=== PATIENT | female | born 1950 | race Caucasian/White ===

== ENCOUNTER → 2023-12-29 14:02 | Outpatient (REF) | payer MEDICARE, OTHER, SELFPAY | LOC: WDC 14:02 | PROVIDERS: ATTENDING PHYSICIAN Family Medicine; REFERRING PHYSICIAN Family Medicine | DX: Z12.31 Encounter for screening mammogram for malignant neoplasm of breast (principal) | CPT/HCPCS: 77063; 77067 ==

== ENCOUNTER 2024-03-13 12:33 | Emergency (ER) | payer MEDICARE, OTHER, SELFPAY ==
[2024-03-13 12:33] VITALS: BMI 26.1
[2024-03-13 12:45] VITALS: BP 123/67
[2024-03-13 13:14] LABS: % Basophils 0.6 % (0-2); % Eosinophils 0.4 % (0-6); % Immature Granulocytes 0.4 % (0-0.5); % Lymphocytes 20.2 % (20.5-51.1); % Monocytes 9.7 % (1.7-9.3); % Neutrophils 68.7 % (42.2-75.2); Absolute Monocytes 0.5 10^3/uL (0.1-0.6); Absolute Neutrophils 3.5 10^3/uL (1.4-6.5); Hemoglobin 15.6 g/dL (12.0-16.0); Mean Corp Hgb Conc. 34.7 g/dL (33.0-37.0); Mean Corpuscular Hgb 30.6 pg (27.0-31.0); Mean Corpuscular Volume 88.2 fL (81.0-99.0); Mean Platelet Volume 9.6 fL (7.4-10.4); Nucleated Red Blood Cells % 0 %; Platelet Count 243 10^3/uL (130-400); Red Cell Dist. Width 11.9 % (11.5-14.5)
[2024-03-13 13:35] LABS: ALT (SGPT) 70 U/L (0-35); AST (SGOT) 57 U/L (14-36); Albumin 4.7 g/dl (3.5-5.0); Alkaline Phosphatase 94 U/L (38-126); Blood Urea Nitrogen 21 mg/dl (7-17); Calcium 9.9 mg/dl (8.4-10.2); Carbon Dioxide 25 mmol/L (22-30); Chloride 95 mmol/L (98-107); Glucose 100 mg/dl (70-99); Potassium 3.9 mmol/L (3.5-5.1); Sodium 137 mmol/L (135-145); Total Protein 7.6 g/dl (6.3-8.2); eGFR > 60.00
[2024-03-13 14:00] VITALS: BP 117/69
[2024-03-13 15:55] VITALS: BP 117/69
[2024-03-13 16:39] VITALS: BP 111/60
--- NOTE | 2024-03-13 16:45 | ED.GENMED ---
History of Present Illness
General
Chief Complaint: Dizziness
Time Seen by Provider: 03/13/24 15:44
History of Present Illness
History of Present Illness:
74-year-old female with history of asthma presenting to the emergency department for feeling dizzy/off-balance. Patient reports symptoms started on Monday which is 5 days ago. She also notes some generalized decreased p.o. intake. Denies
weakness or numbness to her extremities. Does note that sometimes she feels the symptoms with weather changes, however do not believe persist this long. Last evening she had some word finding issues, however they went away. She denies chest pain
or difficulty breathing. She denies abdominal pain. She denies any fall or trauma. Reports that she initially had some nausea and vomiting which has since went away. She also initially had some cough and congestion and subjective fevers, which
has also gone away. Denies known sick contacts. Denies additional acute medical complaints.
Past History
Past History
ED Past Medical History: Hypercholesterolemia (Borderline)
ED Past Surgical History: Gynecological
Social History
Tobacco: Non-smoker
Personal:
Living: with family
Employment: Employed
Family History
Family History: Negative Early CAD
Phy Exam
Physical Exam
Physical Exam:
General: Well-appearing, no clinical signs of dehydration, nontoxic and in no acute distress
HEENT: protecting airway
Neck: appears supple
CV: Normal heart rate, regular rhythm, no evidence of cyanosis
Resp: No accessory muscle use, no increased work of breathing, lungs clear to auscultation bilaterally
Abd: Soft and non-distended, no tenderness to palpation
Extremities: No deformities, no swelling, no erythema, pulses and sensation intact
Neuro: alert, no focal neurologic deficit, no ataxic gait, intact [id number] testing
: deferred
Rectal: deferred
Psych: Normal affect
Skin: Intact
Sepsis
Sepsis Screening
Sepsis Assessment: Sepsis Ruled Out
Sepsis Screen
Sepsis Screen: Sepsis Ruled Out
Date: 03/13/24
Time: 19:07
Course
Orders/Labs/Results
Orders:
Orders
03/13/24 12:50
Electrocardiogram (*1) Urgent
Reason for Study: Vertigo / Dizzy
EKG- Treatment ONCE
03/13/24 13:00
Complete Blood Count/With Diff Urgent
Comprehensive Metabolic Panel Urgent
TSH Reflex To Free T4 Urgent
03/13/24 16:10
CT Head W/o Iv Contrast Urgent
Comment:
Reason For Exam: off-balance
0.9% Sodium Chloride 1000 ml [Nss] 1,000 ml IV BOLUS
03/13/24 17:12
Urinalysis Reflex To Culture Urgent
Date Specimen was Collected: 03/13/24
Time Specimen was Collected: 17:11
Urine Microscopic Reflex Cult Urgent
Urine Culture Urgent
YASMIN Source: U
Specimen Description:
Date Specimen was Collected: 03/13/24
Time Specimen was Collected: 17:11
Abnormal Lab Results
03/13/24 03/13/24
13:00 17:12
Absolute Lymphs (auto) 1.0 L 10^3/uL
(1.2-3.4)
Lymphocytes % 20.2 L %
(20.5-51.1)
Monocytes % 9.7 H %
(1.7-9.3)
Chloride 95 L mmol/L
(98-107)
BUN 21 H mg/dl
(7-17)
Glucose 100 H mg/dl
(70-99)
Total Bilirubin 2.0 H mg/dl
(0.2-1.3)
AST 57 H U/L
(14-36)
ALT 70 H U/L
(0-35)
Urine Ketones 2+ A
(Negative)
Leukocyte Esterase Rfl Trace A
(Negative)
Urine Bacteria (Reflex) Moderate A
(Negative)
03/13/24 13:00
03/13/24 13:00
Vital Signs
Initial and Last Documented VS:
Initial Vital Signs
Temp Pulse Resp BP Pulse Ox
97.4 F 76 18 123/67 99
03/13/24 12:45 03/13/24 12:45 03/13/24 12:45 03/13/24 12:45 03/13/24 12:45
Last Documented Vital Signs
Temp Pulse Resp BP Pulse Ox
97.9 F 64 19 111/60 97
03/13/24 15:55 03/13/24 17:15 03/13/24 17:15 03/13/24 16:39 03/13/24 15:55
MDM/Problems Addressed
MDM/Problems Addressed:
74-year-old female with history of asthma presenting for feeling off balance and dehydrated. Vital signs on arrival are normal.
On exam, patient is well-appearing, no acute distress or discomfort. Patient afebrile, nontoxic. Mild dry mucous membranes. Benign cardiac and pulmonary exam. No focal neurologic deficits. Patient ambulated, no ataxic gait. Lower suspicion for
central neurologic process. Patient reports her symptoms were preceded with congestion/fever/cough. Also had some nausea and vomiting. Possible viral syndrome and now subsequent dehydration. Will screen with laboratory analysis and treat with IV
fluids. Given persistence of symptoms, will screen with CT brain. Will also check for COVID.
17:20 - Thus far labs are unremarkable and COVID-negative. Urine does show signs of ketones. Pending CT imaging
18:50 -CT is negative. On reassessment patient is reporting that she feels better after fluids. Patient does have some bacteria and leukocytes in her urine. Given presenting symptoms, will treat as a urinary tract infection. Patient otherwise
feels better to go home. Remains hemodynamically stable. Feel well for discharge. Strict return precautions communicated and patient verbalized understanding
*EKG
Interpreted by ED Provider?: Yes
EKG Intrepretation Date: 03/13/24
EKG Intrepretation Time: 17:07
Interpretation: normal
Heart Rate: 60
Rate: normal
Rhythm: sinus
[place]: normal axis
Interval: normal interval
QRS Pattern: normal QRS
Ischemia: no ischemia
*Critical Care Note
Total Time (30-74mins, 75-104mins- exclusive of procedures): Not Applicable
ED Attending Note
-
Portions of this chart may have been created with voice recognition software.� Occasional wrong word or��sound alike� substitutions may have occurred due to the inherent limitations of voice recognition software.
Discharge Plan
Departure
Patient Disposition: Home (Routine Discharge)
Date of Disposition: 03/13/24
Time of Disposition: 18:56
Patient with high blood pressure during this ER visit?: No
Condition: Good
Discharge Problem:
Dizziness, Dehydration, Urinary tract infection
Instructions: Dizziness, Nonvertigo, (DC), Dehydration, Adult ED, Urinary Tract Infection, Adult ED
Prescriptions:
New
cephalexin 500 mg capsule
500 mg PO BID 7 Days Qty: 14 0RF
No Action
Asrepro
DAILY
multivitamin [Daily Multiple] 1 EACH tablet
1 ea PO .WITH LUNCH
vitamin E 200 UNIT capsule
200 unit PO BID
aspirin 325 MG tablet
2 tab PO DAILY
ascorbic acid (vitamin C) [Vitamin C] 250 MG tablet
250 mg PO DAILY
vitamin B complex [B-50] 1 TAB tablet
1 tab PO DAILY
montelukast 10 MG tablet
10 mg PO QPM PRN (Reason: as needed)
fluticasone propionate 1 SPRAY spray,suspension
1 spray intranasal DAILY
docosahexaenoic acid-epa 1 CAP capsule
3 cap PO BID
coenzyme X79-efanzfc E [Co Q-10 (with Vit E)] 1 EACH capsule
1 ea PO DAILY
red yeast rice [Cholesterol Management] 600 MG capsule
2 cap PO BID
calcium carbonate-vitamin D3 1 EACH tablet
1 ea PO BID
glucosamine scott 2KCl-chondroit 1 EACH tablet
1 ea PO DAILY
Niacin
DAILY
Xlear Xylitol
intranasal DAILY
Referrals:
Andrés Stinson DO [Family Provider] -
Activity Restrictions/Additional Instructions:
You were seen in the emergency department for feeling off balance
You were found to have normal laboratory analysis, CT brain imaging. You were found to have mild dehydration and possible urinary tract infection. You were started on antibiotic. Please take as directed.
Please follow-up closely with your primary care physician.
Return to the emergency department for any worsening of your symptoms, or any development of chest pain, difficulty breathing, abdominal pain with persistent vomiting and inability to tolerate food or liquid by mouth (concern for dehydration),
weakness or numbness to extremities, headache or confusion, fever greater than 100.4, or any additional symptoms that are concerning to you.
Thank you for choosing [facility].
Interventions
Interventions:
*General Assessment Last Done: 03/13/24 15:58
*Neglect/Abuse Screening Last Done: 03/13/24 15:58
*ED COVID-19 Vaccine History Last Done: 03/13/24 15:58
ED- Neurological Assessment Last Done: 03/13/24 16:00
ED Swallowing Screen Last Done: 03/13/24 17:10
Discharge Date and Time
Print Language: SAMOAN
[2024-03-13] MEDS: NSS 1000 IV (17:09)
[2024-03-13 17:20] LABS: Urine Albumin Trace (Neg - Trace); Urine Bilirubin Negative (Negative); Urine Character Clear (Clear); Urine Color Yellow; Urine Glucose Negative (Negative); Urine Ketone 2+ (Negative); Urine Leukocyte Trace (Negative); Urine Nitrite Negative (Negative); Urine Occult Blood Negative (Negative); Urine Specific Gravity 1.025 (<1.030); Urine Urobilinogen Negative (Neg - 1+)
[2024-03-13 17:34] LABS: Urine Red Blood Cell 0-2 /HPF (0-2)
[2024-03-13 17:35] LABS: Urine Bacteria Moderate (Negative)
--- NOTE | 2024-03-13 19:07 | EDRN ---
IV removed from left arm without complications. Bandage applied.
== END 2024-03-13 19:10 | disposition home or self-care (01) ==
LOC: EMR 12:33
PROVIDERS: Emergency Medicine; EMERGENCY PHYSICIAN Student in an Organized Health Care Education/Training Program; FAMILY PHYSICIAN Family Medicine
DX: N39.0 Urinary tract infection, site not specified (principal); E86.0 Dehydration; R42 Dizziness and giddiness; R11.2 Nausea with vomiting, unspecified; E78.00 Pure hypercholesterolemia, unspecified; J45.909 Unspecified asthma, uncomplicated; Z79.82 Long term (current) use of aspirin; Z88.8 Allergy status to other drugs, medicaments and biological substances
CPT/HCPCS: 99284; 96360; 70450; 80053; 81003; 81015; 84443; 85025; 87086; 93005

== ENCOUNTER → 2024-12-31 13:36 | Outpatient (REF) | payer MEDICARE, OTHER, SELFPAY | LOC: WDC 13:36 | PROVIDERS: ATTENDING PHYSICIAN Family Medicine | DX: Z12.31 Encounter for screening mammogram for malignant neoplasm of breast (principal) | CPT/HCPCS: 77063; 77067 ==

== ENCOUNTER → 2025-06-10 10:20 | Outpatient (REF) | payer MEDICARE, OTHER, SELFPAY | LOC: HWRAD 10:20 | PROVIDERS: ATTENDING PHYSICIAN Family Medicine | DX: R74.8 Abnormal levels of other serum enzymes (principal) | CPT/HCPCS: 76700 ==